=== PATIENT | female | born 1965 | race Caucasian/White ===

== ENCOUNTER 2016-11-18 10:13 | Emergency (ER) | payer BC ==
--- NOTE | 2016-11-18 10:53 | ERNOTE ---
Lower Extremity HPI - Narrative Date of Service: 11/18/16 - General Lower Extremities Pain: hip: left, leg: left, thigh: left, foot: left, ankle: left, 1st toe: left Time Seen by Provider: 11/18/16 10:31 Source: patient Exam Limitations: no limitations - Immun/Allergies/Home Medications Immunizations: IMMUNIZATION HX Immunizations Up to Date Yes History of Influenza Vaccine Yes Hx Pneumococcal Vaccination Yes Allergies/Adverse Reactions: Allergies Allergy/AdvReac Type Severity Reaction Status Date / Time Penicillins Allergy Intermediate Verified 11/18/16 10:22 Home Medications: HOME MEDICATIONS Amitriptyline HCl 5 mg PO PRN PRN 07/05/15 [Last Taken Unknown] Imitrex 35 mg PO PRN PRN 07/05/15 [Last Taken Unknown] Nabumetone 750 mg PO BID 07/05/15 [Last Taken Unknown] Temazepam 60 mg PO HS 07/05/15 [Last Taken Unknown] Escitalopram Oxalate [Lexapro] 20 mg PO DAILY 11/18/16 [Last Taken Unknown] HYDROcodone/ACETAMINOPHEN [Hydrocodon-Acetaminophen 5-325] 1 each PO TID PRN # 20 tablet 11/18/16 [Last Taken Unknown] Levothyroxine Sodium [Tirosint] 50 mcg PO DAILY 11/18/16 [Last Taken Unknown] Mirabegron [Myrbetriq] 50 mg PO DAILY 11/18/16 [Last Taken Unknown] - History of Present Illness Narrative: patient states that for about 2 weeks she has had a dull ache in her left hip that goes own the side of her left lateral leg. she states that the pain stays the same but she does get some ankle swelling when she is walking her dog. Patient also states that a few days ago she has stiffness in her big toe but that went away. Patient states she has been taking her Nabumetone as prescribed. Occurred: other Location of Incident: home Method of Injury: Reports: no apparent injury Modifying Factors - (Improves): Reports: rest Modifying Factors - (Worsens): Reports: movement Associated Symptoms: Denies: unable to bear weight, snapping, popping sensation , dizzy/light headedness, weakness, sensory loss, chest pain, bowel/bladder problems Other Injuries: Reports: none Subsequent Symptoms: Reports: numbness - on and off but not at this time Prior Treament: Denies: similar symptoms before Review of Systems - Review of Systems Constitutional: Present: no symptoms reported EYE: Present: no symptoms reported ENT: Present: no symptoms reported Respiratory: Present: no symptoms reported Cardiology: Present: See HPI, edema Gastrointestinal/Abdominal: Present: no symptoms reported Genitourinary: Present: no symptoms reported Musculoskeletal: Present: See HPI, muscle pain Skin: Present: no symptoms reported Neurological: Present: See HPI, numbness Endocrine: Present: no symptoms reported Hematologic/Lymphatic: Present: no symptoms reported Psych: Present: no symptoms reported - Patient's Past Medical History Patient History - Medical: No pertinent hx Patient History - Cardiac/Respiratory: No pertinent hx Patient History - Cancer: No Hx of Cancer Patient History - Surgical Procedures: Total Hip Replacement Patient History - Other: None LMP (females 10-50): oct 27 - Social History Living Situations: home Psych History: Hx of Depression Smoking Status: Former smoker Alcohol Use: none Drug Use: none - Immunizations Immunizations Up to Date: Yes Hx Pneumococcal Vaccination: Yes History of Influenza Vaccine: Yes Physical Exam - Physical Exam Narrative: Patient has full range of motion to bilateral hips, knees and ankles and toes. No pain with range of motion observed. Temperature skin is equal bilaterally. Denies numbness or tingling at this time. But states it happens at times. Denies any following tripping or any recent trauma. No edema observed. Homans sign negative. General Appearance: Present: wd/wn, alert, no apparent distress Head Exam: Present: normal inspection, no evidence of injury Eye Exam: Normal inspection: bilateral Ears, Nose, Throat: Present: normal ENT inspection, normal pharynx Neck: Present: normal inspection, nontender, full range of motion Respiratory: Present: no respiratory distress, normal breath sounds, no accessory muscle use, chest nontender, lungs clear Cardiovascular/Chest: Present: regular rate, rhythm, no murmur, normal peripheral pulses Peripheral Pulses: N=norm/S=strong/W=weak/B=bound/A=absent: Dorsalis-pedis (R): Normal, Dorsalis-pedis (L): Normal Gastrointestinal/Abdominal: Present: normal bowel sounds, nontender, nondistended, soft, no organomegaly Back Exam: Present: normal inspection, normal range of motion, no CVA tenderness , no vertebral tenderness. Absent: muscle spasm Extremity Exam: Present: normal inspection, non-tender, normal range of motion, no edema, pelvis stable. 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 Skin Exam: Present: normal color, warm/dry Lymphatic Exam: Present: no adenopathy ED Progress - Vital Signs Vital Signs: Vital Signs 11/18/16 10:13 Pulse Rate 70 Respiratory 15 Rate Blood Pressure 129/66 O2 Sat by Pulse 100 Oximetry - X-Ray X-Ray #1 X-Ray: hip Interpretation: Reviewed by me X-ray Comments: X-RAY REPORT [id number] RAD/Hip Pelvis 2-3 views LT * Exam Date: 11/18/2016 11:01 Ordering Physician: Matthias Reardon INDICATION: left leg ache, hx of left hip replacement COMPARISON: October 06, 2004 TECHNIQUE: Hip Pelvis 2-3 views LT * FINDINGS: Surgical hardware identified within the left hip in adequate position without evidence for complication. Normal bone mineralization. No fracture. No dislocation. Minimal degenerative changes are seen. IMPRESSION: 1. No acute osseous abnormality detected. Electronically signed by Kevin Jon M.D.. Kevin Jon MD Dict: 11/18/16 1137 X-Ray #2 X-Ray: lumbosacral Interpretation: Reviewed by me X-ray Comments: DAVID observed. - Progress/Reassessment Chief Complaint: Lower Extremity Pain/ Injury Plan - Plan Plan: Patient's gait is normal. She does not have any increased pain with range of motion. She describes the pain as a dull ache. The patient will be encouraged to follow up with her primary care for further workup at this time. No acute processes apparent. Patient encouraged to rest and relax for the next few days. Patient also instructed she could change her NSAID if she would like. Patient educated on other NSAIDs are available to her. But she should not take them together. Patient understands this and states she will call her primary care on Sunday to follow-up. Patient educated to return if swelling increases pain increases or she loses any sensation. Currently patient has full sensation no numbness no tingling and no swelling to the left extremity. Departure Clinical Impression: Arthritis Degenerative joint disease (DJD) of lumbar spine Qualifiers: Spinal osteoarthritis complication: unspecified spinal osteoarthritis Qualified Code(s): M47.816 - Spondylosis without myelopathy or radiculopathy, lumbar region - Departure Disposition: Home Follow Up Needed Condition: Stable Instructions: RICE for Routine Care of Injuries, [id number], Arthritis Additional Instructions: Continue any previous home medications as directed. Return to the emergency room if symptoms become worse or persist. If you have loss of bowel or bladder , inability to walk or any new symptoms please return to the emergency room immediately. Follow-up with her primary care doctor Sunday. He may take change NSAID as we discussed. These medications are being prescribed may cause constipation. Referrals: Jhonny Block MD [Primary Care Provider] - Prescriptions: HYDROcodone/ACETAMINOPHEN [Hydrocodon-Acetaminophen 5-325] 1 each PO TID PRN # 20 tablet PRN Reason: Pain
[2016-11-18 12:36] VITALS: BP 114/74
== END 2016-11-18 12:51 | disposition home or self-care (01) ==
LOC: ER 10:13
DX: M19.90 Unspecified osteoarthritis, unspecified site (principal); M47.816 Spondylosis without myelopathy or radiculopathy, lumbar region